=== PATIENT | female | born 1980 | race Caucasian/White ===

== ENCOUNTER 2024-07-25 10:00 | Emergency (ER) | payer SELFPAY ==
[2024-07-25] VITALS (7 sets, daily range): BP systolic 131–152; BP diastolic 88–99
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
[2024-07-25] MEDS: ADACEL 0.5 ML IM (12:04)
[2024-07-25] MEDS: NSS 1000 IV (12:04)
[2024-07-25 12:12] LABS: % Basophils 0.6 % (0-2); % Eosinophils 0.1 % (0-6); % Immature Granulocytes 0.8 % (0-0.5); % Lymphocytes 8.2 % (20.5-51.1); % Monocytes 4.7 % (1.7-9.3); % Neutrophils 85.6 % (42.2-75.2); Absolute Basophils 0.1 10^3/uL (0-0.2); Absolute Immature Granulocytes 0.2 10^3/uL (0-0.05); Absolute Lymphocytes 1.6 10^3/uL (1.2-3.4); Absolute Monocytes 0.9 10^3/uL (0.1-0.6); Absolute Neutrophils 16.4 10^3/uL (1.4-6.5); Hematocrit 37.2 % (37.0-47.0); Hemoglobin 11.9 g/dL (12.0-16.0); Mean Corpuscular Hgb 23.9 pg (27.0-31.0); Mean Corpuscular Volume 74.8 fL (81.0-99.0); Nucleated Red Blood Cells % 0 %; Platelet Count 351 10^3/uL (130-400); Red Blood Cell Count 4.97 10^6/uL (4.20-5.40); Red Cell Dist. Width 20.7 % (11.5-14.5); White Blood Cell Count 19.2 10^3/uL (4.8-10.8)
[2024-07-25 12:22] LABS: HCG, Serum Qualitative Screen Negative
[2024-07-25 12:37] LABS: ALT (SGPT) 35 U/L (0-35); AST (SGOT) 34 U/L (14-36); Albumin 4.4 g/dl (3.5-5.0); Alkaline Phosphatase 70 U/L (38-126); Blood Urea Nitrogen 13 mg/dl (7-17); Calcium 9.3 mg/dl (8.4-10.2); Carbon Dioxide 22 mmol/L (22-30); Chloride 109 mmol/L (98-107); Glucose 119 mg/dl (70-99); Potassium 4.2 mmol/L (3.5-5.1); Sodium 138 mmol/L (135-145); Total Bilirubin 0.6 mg/dl (0.2-1.3); Total Protein 7.1 g/dl (6.3-8.2); eGFR > 60.00
[2024-07-25] MEDS: TORADOL 15 MG IV (16:54)
[2024-07-25] MEDS: FLEXERIL 10 MG PO (19:18)
[2024-07-25] MEDS: TYLENOL 1000 MG PO (19:18)
== END 2024-07-25 19:23 | disposition home or self-care (01) ==
LOC: EMR 10:00
PROVIDERS: Nurse Practitioner; EMERGENCY PHYSICIAN Student in an Organized Health Care Education/Training Program; FAMILY PHYSICIAN Internal Medicine
DX: S60.222A Contusion of left hand, initial encounter (principal); S50.311A Abrasion of right elbow, initial encounter; M54.9 Dorsalgia, unspecified; V09.20XA Pedestrian injured in traffic accident involving unspecified motor vehicles, initial encounter; Y92.410 Unspecified street and highway as the place of occurrence of the external cause
CPT/HCPCS: 99284; 96374; 90471; 96361; 70450; 70553; 71260; 72125; 73130; 74177; 80053; 84703; 85025; 90715; A9575; Q9967